=== PATIENT | female | born 1975 | race Caucasian/White ===

== ENCOUNTER 2016-12-20 19:39 | Emergency (ER) | payer SELFPAY ==
[~2016-12-20] VITALS: Ht 157.5 cm; Wt 45.0 kg
[2016-12-20 19:40] VITALS: BP 146/96; PULSE 102; RESP 18; TEMP 97.9; O2SAT 97
--- NOTE | 2016-12-20 21:26 | PD ---
HPI Chief Complaint: Chest Pain Time Seen by Provider: 21:26 Travel History International Travel<30 days: No Contact w/Intl Traveler<30days: No Traveled to known affect area: No History of Present Illness HPI 41-year-old female with history of anxiety, polysubstance abuse, alcoholism, presents to emergency department for evaluation. Patient states that she has been drinking alcohol today. She comes for evaluation of left-sided chest pain. When asked to clarify this chest pain, she states it is in her left breast. She states the pain has been there for 6-11 months. Denies any trauma. No fever or chills. She has had breast augmentation but has not followed up with her plastic surgeon in regards to this pain. Denies any shortness of breath. Cannot think of any exacerbating or alleviating factors. She has no other symptoms to report at this time. PFSH Past Medical History Anxiety: Yes Cancer: No Cardiovascular Problems: No Diminished Hearing: No Endocrine: No Genitourinary: No Immune Disorder: No Musculoskeletal: No Neurologic: Yes (MIGRAINES) Psychiatric: Yes (PANIC ATTACKS) Reproductive: No Respiratory: No Migraines: Yes ?: Not Dilation and Curettage (D&C): Yes Past Surgical History Other Surgery: Yes (BREAST AUGMENTATION) Social History Alcohol Use: Yes Tobacco Use: Yes (1/2PPD) Substance Use: Yes (valium, xanax, COCAINE) Allergies-Medications (Allergen,Severity, Reaction): Coded Allergies: No Known Allergies (Verified , 12/20/16) Reported Meds & Prescriptions Reported Meds & Active Scripts Active No Active Prescriptions or Reported Medications Review of Systems Except as stated in HPI: all other systems reviewed are Neg Physical Exam Narrative GENERAL: Unkempt female patient, appears to be under the influence with smell of alcohol, slurred speech, and labile behavior, in no acute distress SKIN: Warm and dry. Breasts are symmetric, appeared to be augmented, no induration or erythema. No appreciable abscess. HEAD: Atraumatic. Normocephalic. EYES: Pupils equal and round. No scleral icterus. No injection or drainage. ENT: No nasal bleeding or discharge. Mucous membranes pink and moist. NECK: Trachea midline. No JVD. CARDIOVASCULAR: Elevated rate and rhythm. No murmur appreciated. RESPIRATORY: No accessory muscle use. Clear to auscultation. Breath sounds equal bilaterally. GASTROINTESTINAL: Abdomen soft, non-tender, nondistended. Hepatic and splenic margins not palpable. MUSCULOSKELETAL: No obvious deformities. No clubbing. No cyanosis. No edema. NEUROLOGICAL: Awake and alert. No obvious cranial nerve deficits. Motor grossly within normal limits. Normal speech. Data Data Last Documented VS Vital Signs Date Time Temp Pulse Resp B/P Pulse Ox O2 Delivery O2 Flow Rate FiO2 12/20/16 19:40 97.9 102 18 146/96 97 Room Air Orders Electrocardiogram (12/20/16 20:28) MDM Medical Decision Making Medical Screen Exam Complete: Yes Emergency Medical Condition: Yes Medical Record Reviewed: Yes Differential Diagnosis Neuralgia versus musculoskeletal pain versus abscess versus cellulitis versus chest wall pain versus anxiety Narrative Course 41 year-old female presents to the emergency department for evaluation. Patient appears intoxicated. She admits to drinking alcohol today. Evaluation of the left breast is reassuring. There are no indication of infection or obvious reason for her pain that has been going on for the last 6-11 months. I offered reassurance and advised that she follow-up with her plastic surgeon. Patient becomes very angry with me at this time and tells me that she "needs to call the obgyn specialist because we do this to her all the time. She is not going to the [facility]!" I explained the patient that I had no intention to place her in the psychiatric [facility] and that contacting the obgyn specialist from the emergency department at this time is not recommended. Being that the patient is clinically intoxicated, she'll be observed until she is clinically sober at which time she will be discharged. Diagnosis Primary Impression: alcohol use w mild intoxication Additional Impression: Breast pain, left Referrals: [facility] (Out patient) Plastic Surgeon Patient Instructions: Alcohol Intoxication (ED), General Instructions Additional Instructions: Follow-up with her plastic surgeon Consume alcohol in moderation Return immediately to the emergency department with any acute worsening of symptoms Med/Other Pt SpecificInfo: No Change to Meds Scripts No Active Prescriptions or Reported Meds Disposition: 01 DISCHARGE HOME Condition: Stable Kellee Anaya KRISTIN Dec 20, 2016 21:26
== END 2016-12-21 06:48 | disposition home or self-care (01) ==
LOC: NEPB 19:39 → NEPA 12-21 06:48
DX: N64.4 Mastodynia (principal); F10.229 Alcohol dependence with intoxication, unspecified; F41.9 Anxiety disorder, unspecified; F19.10 Other psychoactive substance abuse, uncomplicated

== ENCOUNTER 2016-12-21 13:06 | Emergency (ER) | payer SELFPAY ==
[~2016-12-21] VITALS: Ht 157.5 cm; Wt 45.0 kg
[2016-12-21 13:08] VITALS: BP 142/105; PULSE 75; RESP 14; TEMP 98; O2SAT 99
--- NOTE | 2016-12-21 13:41 | PD ---
HPI Chief Complaint: Chest Pain Time Seen by Provider: 13:39 Travel History International Travel<30 days: No Contact w/Intl Traveler<30days: No Traveled to known affect area: No History of Present Illness HPI 41-year-old female presents to the emergency department for evaluation of abdominal pain and chest pain. When asked how long these symptoms have been ongoing, she states that it ongoing for 6 months. She states she was seen yesterday in the emergency department an EKG was completed. However, she states that she is still concerned about her symptoms. She states that her symptoms have been intermittent over the 6 months coming and going. Patient states she is unsure she is running any fevers. She denies any chance of . She denies any abnormal vaginal discharge. Patient does not have any chronic medical problems. Her only surgery is bilateral breast implants. PFSH Past Medical History Anxiety: Yes Cancer: No Cardiovascular Problems: No Diminished Hearing: No Endocrine: No Genitourinary: No Immune Disorder: No Musculoskeletal: No Neurologic: Yes (MIGRAINES) Psychiatric: Yes (PANIC ATTACKS) Reproductive: No Respiratory: No Migraines: Yes ?: Not Dilation and Curettage (D&C): Yes Past Surgical History Other Surgery: Yes (BREAST AUGMENTATION) Social History Alcohol Use: Yes Tobacco Use: Yes (1/2PPD) Substance Use: Yes (valium, xanax, COCAINE) Allergies-Medications (Allergen,Severity, Reaction): Coded Allergies: No Known Allergies (Verified , 12/21/16) Reported Meds & Prescriptions Reported Meds & Active Scripts Active No Active Prescriptions or Reported Medications Review of Systems Except as stated in HPI: all other systems reviewed are Neg Physical Exam Narrative GENERAL: Well-developed well-nourished female patient, ambulatory. Afebrile. SKIN: Warm and dry. HEAD: Normocephalic. Atraumatic. EYES: No scleral icterus. No injection or drainage. NECK: Supple, trachea midline. No JVD or lymphadenopathy. CARDIOVASCULAR: Regular rate and rhythm without murmurs, gallops, or rubs. RESPIRATORY: Breath sounds equal bilaterally. No accessory muscle use. Lungs sounds are clear to auscultation. GASTROINTESTINAL: Abdomen soft, non-tender, nondistended. MUSCULOSKELETAL: No cyanosis, or edema. BACK: Nontender without obvious deformity. No CVA tenderness. Data Data Last Documented VS Vital Signs Date Time Temp Pulse Resp B/P Pulse Ox O2 Delivery O2 Flow Rate FiO2 12/21/16 15:01 70 16 123/79 97 Room Air 12/21/16 13:08 98.0 Orders Electrocardiogram (12/21/16 13:38) Basic Metabolic Panel (Bmp) (12/21/16 13:38) Ckmb (Isoenzyme) Profile (12/21/16 13:38) Complete Blood Count With Diff (12/21/16 13:38) Troponin I (12/21/16 13:38) Lipase (12/21/16 13:38) Chest, Single Ap (12/21/16 13:38) Hepatic Functional Panel (12/21/16 15:28) Ct Abd/Pel W Iv Contrast(Rout) (12/21/16 ) Ed Urine Pregnancytest Poc (12/21/16 15:28) Labs Laboratory Tests Test 12/21/16 14:15 White Blood Count 12.9 TH/MM3 Red Blood Count 4.24 MIL/MM3 Hemoglobin 13.6 GM/DL Hematocrit 40.5 % Mean Corpuscular Volume 95.5 FL Mean Corpuscular Hemoglobin 32.2 PG Mean Corpuscular Hemoglobin 33.7 % Concent Red Cell Distribution Width 14.5 % Platelet Count 426 TH/MM3 Mean Platelet Volume 9.1 FL Neutrophils (%) (Auto) 59.2 % Lymphocytes (%) (Auto) 30.2 % Monocytes (%) (Auto) 7.9 % Eosinophils (%) (Auto) 1.9 % Basophils (%) (Auto) 0.8 % Neutrophils # (Auto) 7.6 TH/MM3 Lymphocytes # (Auto) 3.9 TH/MM3 Monocytes # (Auto) 1.0 TH/MM3 Eosinophils # (Auto) 0.2 TH/MM3 Basophils # (Auto) 0.1 TH/MM3 CBC Comment DIFF FINAL Differential Comment Sodium Level 136 MEQ/L Potassium Level 3.6 MEQ/L Chloride Level 101 MEQ/L Carbon Dioxide Level 26.8 MEQ/L Anion Gap 8 MEQ/L Blood Urea Nitrogen 8 MG/DL Creatinine 0.75 MG/DL Estimat Glomerular Filtration 86 ML/MIN Rate Random Glucose 77 MG/DL Calcium Level 8.7 MG/DL Total Creatine Kinase 93 U/L Troponin I LESS THAN 0.02 NG/ML Lipase 207 U/L MDM Medical Decision Making Medical Screen Exam Complete: Yes Emergency Medical Condition: Yes Medical Record Reviewed: Yes Differential Diagnosis Anxiety versus chronic pain versus unlikely ACS Narrative Course 41-year-old female presents to the emergency department for evaluation of chest pain or abdominal pain has been ongoing intermittently for 6 months. Physical exam is reassuring. CBC, CMP, CK, troponin, lipase are ordered and pending. Chest x-ray is ordered and pending. Workup is initiated in triage. Patient will be moved to medical pod for further evaluation and disposition. Scripts No Active Prescriptions or Reported Meds Iris Pastrana Dec 21, 2016 13:41
--- NOTE | 2016-12-21 14:02 | RADRPT ---
EXAM DATE/TIME: 12/21/2016 13:34 [facility] COMPARISON: No previous studies available for comparison. INDICATIONS : Chest pains. MEDICAL HISTORY : Edema around abdomen and legs. SURGICAL HISTORY : None. ENCOUNTER: Initial ACUITY: 1 week PAIN SCORE: 3/10 LOCATION: Bilateral chest FINDINGS: A single view of the chest demonstrates the lungs to be symmetrically aerated without evidence of mas s, infiltrate or effusion. The cardiomediastinal contours are unremarkable. Osseous structures are intact. CONCLUSION: No acute disease. Rojelio Mayorga MD FACR on December 21, 2016 at 14:00 Board Certified Radiologist. This report was verified electronically.
[2016-12-21 14:44] LABS: AUTOMATED NEUTROPHIL # 7.6 TH/MM3 (1.8-7.7); BASOPHIL # 0.1 TH/MM3 (0-0.2); BASOPHIL % 0.8 % (0.0-2.0); EOSINOPHIL # 0.2 TH/MM3 (0-0.4); EOSINOPHIL % 1.9 % (0.0-4.0); HEMATOCRIT 40.5 % (35.0-46.0); HEMO FLAGS DIFF FINAL; LYMPH % 30.2 % (9.0-44.0); LYMPHOCYTE # 3.9 TH/MM3 (1.0-4.8); MEAN CELL VOLUME 95.5 FL (80.0-100.0); MEAN CORPUSCULAR HEMOGLOBIN 32.2 PG (27.0-34.0); MEAN CORPUSCULAR HGB CONC 33.7 % (32.0-36.0); MONO % 7.9 % (0.0-8.0); NEUT % 59.2 % (16.0-70.0); PLATELET COUNT 426 TH/MM3 (150-450); RED BLOOD COUNT 4.24 MIL/MM3 (4.00-5.30); RED CELL DISTRIBUTION WIDTH 14.5 % (11.6-17.2); WHITE BLOOD COUNT 12.9 TH/MM3 (4.0-11.0)
[2016-12-21 14:50] LABS: ANION GAP 8 MEQ/L (5-15); BICARBONATE 26.8 MEQ/L (21.0-32.0); BLOOD UREA NITROGEN 8 MG/DL (7-18); CHLORIDE 101 MEQ/L (98-107); GLOMERULAR FILTRATION RATE 86 ML/MIN (>89); POTASSIUM 3.6 MEQ/L (3.5-5.1); SODIUM (NA) 136 MEQ/L (136-145)
[2016-12-21 14:59] LABS: CREATINE KINASE 93 U/L (26-192)
[2016-12-21 15:01] VITALS: BP 123/79; PULSE 70; RESP 16; O2SAT 97
[2016-12-21 16:33] LABS: INDIRECT BILIRUBIN 0.1 MG/DL (0.0-0.8); TOTAL BILIRUBIN ADULT 0.2 MG/DL (0.2-1.0)
--- NOTE | 2016-12-21 16:53 | EKG ---
Date Performed: 12/21/2016 Time Performed: 14:06:42 PTAGE: 41 years EKG: Sinus rhythm NORMAL ECG INTERPRETATION BASED ON A DEFAULT AGE OF 41 YEARS NO PREVIOUS TRACING DOCTOR: Abdi Boone Interpretating Date/Time 12/21/2016 16:51:57
[2016-12-21] MEDS ORDERED: IOHEXOL 350 MG/ML 10 ML VIAL (for RAD DIAG) IV ONE (17:56)
--- NOTE | 2016-12-21 18:18 | RADRPT ---
EXAM DATE/TIME: 12/21/2016 17:53 [facility] COMPARISON: No previous studies available for comparison. INDICATIONS : Epigastric and abdominal pain. IV CONTRAST: 70 cc Omnipaque 350 (iohexol) IV ORAL CONTRAST: No oral contrast ingested. RADIATION DOSE: 4.52 CTDIvol (mGy) MEDICAL HISTORY : None SURGICAL HISTORY : D&C. ENCOUNTER: Initial ACUITY: 1 month PAIN SCALE: 4/10 LOCATION: Bilateral upper quadrant TECHNIQUE: Volumetric scanning of the abdomen and pelvis was performed. Using automated exposure control and ad justment of the mA and/or kV according to patient size, radiation dose was kept as low as reasonably achievable to obtain optimal diagnostic quality images. FINDINGS: LOWER LUNGS: The visualized lower lungs are clear. Patient has bilateral breast augmentation. LIVER: Homogeneous density without lesion. There is no dilation of the biliary tree. No calcified gallston es. SPLEEN: Normal size without lesion. PANCREAS: There is some fullness in what I believe is the pancreatic head with a focal, 1.1 cm hypodensity whic h is nonspecific. KIDNEYS: Normal in size and shape. There is no mass, stone or hydronephrosis. ADRENAL GLANDS: Within normal limits. VASCULAR: There is no aortic aneurysm. BOWEL/MESENTERY: The stomach, small bowel, and colon demonstrate no acute abnormality. There is no free intraperitone al air or fluid. ABDOMINAL WALL: Within normal limits. RETROPERITONEUM: There is no lymphadenopathy. BLADDER: No wall thickening or mass. REPRODUCTIVE: Uterus is retroverted. Isn't prominent on 2.1 cm cyst in the left ovary. Multiple pelvic varicosities are identified, particularly on the left.. INGUINAL: There is no lymphadenopathy or hernia. MUSCULOSKELETAL: Within normal limits for patient age. CONCLUSION: 1. Patient has a retroverted uterus with multiple sherwin-uterine varicosities. In the appropriate clini mata setting, findings could represent pelvic congestion syndrome. 2. In addition, 2.1 cm dominant cyst in left ovary. 3. Nonspecific fullness of the pancreatic head with an isolated 1.1 cm hypodensity in the same genera l vicinity. I do not believe that this is the cause of the patient's acute clinical symptoms. At some point, MRI of the pancreas with and without gadolinium could be performed for further characterizati on of this region. Alessandro Sherman MD on December 21, 2016 at 18:10 Board Certified Radiologist. This report was verified electronically.
--- NOTE | 2016-12-21 18:37 | PD ---
Physical Exam Narrative Patient is 41-year-old female who originally seen by [facility] in triage where workup was initiated. She is complaining of chest pain and abdominal pain, both of which she has had 4 she says 11 months. She was seen here yesterday complaining of chest pain and was intoxicated at the time. She was discharged home to follow-up with her doctor. She says the pain in her lower abdomen has gotten worse. She denies any nausea or vomiting. She says she is "swollen" in her ankles, her hands and her abdomen. She denies any vaginal discharge. Data Data Last Documented VS Vital Signs Date Time Temp Pulse Resp B/P Pulse Ox O2 Delivery O2 Flow Rate FiO2 12/21/16 15:01 70 16 123/79 97 Room Air 12/21/16 13:08 98.0 Orders Electrocardiogram (12/21/16 13:38) Basic Metabolic Panel (Bmp) (12/21/16 13:38) Ckmb (Isoenzyme) Profile (12/21/16 13:38) Complete Blood Count With Diff (12/21/16 13:38) Troponin I (12/21/16 13:38) Lipase (12/21/16 13:38) Chest, Single Ap (12/21/16 13:38) Hepatic Functional Panel (12/21/16 15:28) Ct Abd/Pel W Iv Contrast(Rout) (12/21/16 ) Ed Urine Pregnancytest Poc (12/21/16 15:28) Iohexol 350 Inj (Omnipaque 350 Inj) (12/21/16 17:56) Urinalysis - C+S If Indicated (12/21/16 18:27) Labs Laboratory Tests Test 12/21/16 14:15 White Blood Count 12.9 TH/MM3 Red Blood Count 4.24 MIL/MM3 Hemoglobin 13.6 GM/DL Hematocrit 40.5 % Mean Corpuscular Volume 95.5 FL Mean Corpuscular Hemoglobin 32.2 PG Mean Corpuscular Hemoglobin 33.7 % Concent Red Cell Distribution Width 14.5 % Platelet Count 426 TH/MM3 Mean Platelet Volume 9.1 FL Neutrophils (%) (Auto) 59.2 % Lymphocytes (%) (Auto) 30.2 % Monocytes (%) (Auto) 7.9 % Eosinophils (%) (Auto) 1.9 % Basophils (%) (Auto) 0.8 % Neutrophils # (Auto) 7.6 TH/MM3 Lymphocytes # (Auto) 3.9 TH/MM3 Monocytes # (Auto) 1.0 TH/MM3 Eosinophils # (Auto) 0.2 TH/MM3 Basophils # (Auto) 0.1 TH/MM3 CBC Comment DIFF FINAL Differential Comment Sodium Level 136 MEQ/L Potassium Level 3.6 MEQ/L Chloride Level 101 MEQ/L Carbon Dioxide Level 26.8 MEQ/L Anion Gap 8 MEQ/L Blood Urea Nitrogen 8 MG/DL Creatinine 0.75 MG/DL Estimat Glomerular Filtration 86 ML/MIN Rate Random Glucose 77 MG/DL Calcium Level 8.7 MG/DL Total Bilirubin 0.2 MG/DL Direct Bilirubin 0.1 MG/DL Indirect Bilirubin 0.1 MG/DL Aspartate Amino Transf 18 U/L (AST/SGOT) Alanine Aminotransferase 22 U/L (ALT/SGPT) Alkaline Phosphatase 80 U/L Total Creatine Kinase 93 U/L Troponin I LESS THAN 0.02 NG/ML Total Protein 7.8 GM/DL Albumin 4.0 GM/DL Lipase 207 U/L [facility] Supervised Visit with [facility]: Yes Narrative Course Patient is a 41-year-old female comes in complaining of chest pain and abdominal pain which she has had for several months. Exam shows some diffuse abdominal tenderness, there is no ascites seen. Heart is regular rate and rhythm, lungs are clear to auscultation. There is no edema of any of her extremities. IV established and labs sent. Creatinine is within normal limits. Liver function testing is within normal limits. White blood cell count is 12.9. CT of the abdomen and pelvis shows varicosities within the pelvis, possible pelvic congestion syndrome. There is also a lesion in her pancreas which cannot be defined at this time. Patient informed of these results. Advised she needs to follow-up with gynecology regarding the pelvic findings. Advised she needs to follow-up with her primary care doctor and have an MRI of her pancreas done to further classified the lesion. Patient is resting comfortably at this time. Will be discharged home to follow- up with the appropriate doctors. Advised to return to the emergency department as needed for any worsening symptoms. Diagnosis Primary Impression: Abdominal pain Qualified Code: R10.30 - Lower abdominal pain Referrals: [facility] call for appointment Patient Instructions: Abdominal Pain (ED), General Instructions Additional Instruction: Your CT of your abdomen shows a large amount of veins in your pelvis, which may be causing you pain. You need to follow up with gynecology for further management. In addition, there was a lesion seen on your pancreas. Follow up with a primary care physician or the community clinic to have an outpatient MRI performed. You can take Tylenol or Ibuprofen for pain. Return to the ED as needed for any worsening symptoms. Scripts No Active Prescriptions or Reported Meds Disposition: 01 DISCHARGE HOME Condition: Stable Maite Hobbs MD Dec 21, 2016 18:37
[2016-12-21 18:55] LABS: BLOOD, URINE NEG (NEG); COMMENT (UR) CULT NOT INDICATED; CULTURE IF INDICATED CULT NOT INDICATED; GLUCOSE,URINE NEG (NEG); KETONE, URINE NEG (NEG); NITRITE,URINE NEG (NEG); PH, URINE 7.5 (5.0-8.5); SQUAMOUS EPITHELIAL CELL URINE 4 /hpf (0-5); URINE COLOR LIGHT-YELLOW (YELLW/STRAW)
[2016-12-21 19:27] VITALS: BP 125/76; PULSE 76; RESP 16; O2SAT 98
== END 2016-12-21 19:27 | disposition home or self-care (01) ==
LOC: NEPC 13:06
DX: R10.30 Lower abdominal pain, unspecified (principal); R07.9 Chest pain, unspecified; F17.210 Nicotine dependence, cigarettes, uncomplicated; F14.90 Cocaine use, unspecified, uncomplicated; F13.90 Sedative, hypnotic, or anxiolytic use, unspecified, uncomplicated
CPT/HCPCS: 71010; 74177; 80048; 80076; 81001; 82550; 83690; 84484; 84703; 85025; 93005; 99285; Q9967

== ENCOUNTER 2017-05-08 15:59 | Emergency (ER) | payer SELFPAY ==
[~2017-05-08] VITALS: Ht 157.5 cm; Wt 53.6 kg
[2017-05-08 16:01] VITALS: BP 135/92; PULSE 90; RESP 20; TEMP 97.9; O2SAT 97
--- NOTE | 2017-05-08 16:39 | PD ---
Physical Exam Time Seen by Provider: 16:37 Narrative 42yo F c/o abd distention and pain x 1 month. +V, diarrhea. Subjective fever. Currently on menses. Patient seen in triage. VS reviewed. Awaiting bed placement. Data Data Last Documented VS Vital Signs Date Time Temp Pulse Resp B/P Pulse Ox O2 Delivery O2 Flow Rate FiO2 05/08/17 16:01 97.9 90 20 135/92 97 Room Air MDM Supervised Visit with [facility]: No Scripts No Active Prescriptions or Reported Meds Sherie Ordonez May 08, 2017 16:39
== END 2017-05-08 17:46 | disposition left against medical advice (07) ==
LOC: NED 15:59
DX: R14.0 Abdominal distension (gaseous) (principal); R11.10 Vomiting, unspecified; R19.7 Diarrhea, unspecified; R50.9 Fever, unspecified; Z53.21 Procedure and treatment not carried out due to patient leaving prior to being seen by health care provider
CPT/HCPCS: 99281

== ENCOUNTER 2017-06-13 10:30 | Emergency (ER) | payer SELFPAY ==
[~2017-06-13] VITALS: Ht 157.5 cm; Wt 55.0 kg
[2017-06-13 10:32] VITALS: BP 183/105; PULSE 166; RESP 20; TEMP 98.8; O2SAT 100
[2017-06-13 10:37] VITALS: PULSE 134
[2017-06-13 10:48] VITALS: BP 180/128; PULSE 146; RESP 22; O2SAT 97
[2017-06-13] MEDS ORDERED: SODIUM CHLOR 0.9% 1000 ML INJ 1,000 ML IV SCH (10:57)
[2017-06-13] MEDS ORDERED: SODIUM CHLORIDE 0.9% FLUSH 5 ML FLUSH IV FLUSH PRN (11:00)
[2017-06-13] MEDS ORDERED: LORazepam 2 MG/ML VIAL IV PUSH ONE ×3 (11:00→13:00)
[2017-06-13] MEDS ORDERED: diphenhydrAMINE HCL 50 MG/ML VIAL IV PUSH ONE (11:00)
--- NOTE | 2017-06-13 11:01 | PD ---
HPI Chief Complaint: Anxiety Time Seen by Provider: 10:42 Travel History International Travel<30 days: No Contact w/Intl Traveler<30days: No Traveled to known affect area: No History of Present Illness HPI Patient is a 42-year-old female presents emergency department for a chief complaint of my left breast implant ruptured. Patient states that a gentleman whom she is related to his coming was a merchant police who can tell us more. She is reluctant to give us any other additional information this time. Patient arrives tachycardic with dilated pupils and appears to be under the influence of some unknown substance. She will not provide any additional history and appears to be paranoid. At the patient's consent she is provided her mother Lakesha's phone number, [phone], and Lakesha states that she dropped her off today because she is concerned that her daughter has some mental health issues. She agrees with decision to [place]. She is unsure who the person whom her daughter is referring. PFSH Past Medical History Anxiety: Yes Cancer: No Cardiovascular Problems: No Diminished Hearing: No Endocrine: No Genitourinary: No Immune Disorder: No Implanted Vascular Access Dvce: No Musculoskeletal: No Neurologic: Yes (MIGRAINES) Psychiatric: Yes (PANIC ATTACKS) Reproductive: No Respiratory: No Migraines: Yes Influenza Vaccination: No ?: Not Dilation and Curettage (D&C): Yes Past Surgical History Other Surgery: Yes (BREAST AUGMENTATION) Social History Alcohol Use: Yes (daily) Tobacco Use: Yes (1 ppd) Substance Use: Yes (valium, xanax, COCAINE, marijuana) Allergies-Medications (Allergen,Severity, Reaction): Coded Allergies: No Known Allergies (Verified , 06/13/17) Reported Meds & Prescriptions Reported Meds & Active Scripts Active No Active Prescriptions or Reported Medications Review of Systems ROS Limitations: Clinical Condition Physical Exam Narrative GENERAL: WD/WN dilated pupils. SKIN: Warm and diaphoretic. HEAD: Atraumatic. Normocephalic. EYES: Pupils equal and round reactive to light. Dilated. No scleral icterus. No injection or drainage. ENT: No nasal bleeding or discharge. Mucous membranes pink and moist. NECK: Trachea midline. No JVD. CARDIOVASCULAR: Regular rhythm. Tachycardic, no MGR. RESPIRATORY: No accessory muscle use. Clear to auscultation. Breath sounds equal bilaterally. GASTROINTESTINAL: Abdomen soft, non-tender, nondistended. Hepatic and splenic margins not palpable. MUSCULOSKELETAL: Extremities without clubbing, cyanosis, or edema. No obvious deformities. NEUROLOGICAL: Awake and alert. No obvious cranial nerve deficits. Motor grossly within normal limits. Five out of 5 muscle strength in the arms and legs. Normal speech. PSYCHIATRIC: Aggrevated, difficult to fully assess for lack of cooperation Data Data Last Documented VS Vital Signs Date Time Temp Pulse Resp B/P Pulse Ox O2 Delivery O2 Flow Rate FiO2 06/13/17 19:29 100 18 126/77 Room Air 06/13/17 16:35 98.2 97 Orders Electrocardiogram (06/13/17 10:57) Complete Blood Count With Diff (06/13/17 10:57) Comprehensive Metabolic Panel (06/13/17 10:57) Creatine Kinase (Cpk) (06/13/17 10:57) Prothrombin Time / Inr (Pt) (06/13/17 10:57) Act Partial Throm Time (Ptt) (06/13/17 10:57) Troponin I (06/13/17 10:57) Thyroid Stimulating Hormone (06/13/17 10:57) Urinalysis - C+S If Indicated (06/13/17 10:57) Blood Glucose (06/13/17 10:57) Ecg Monitoring (06/13/17 10:57) Iv Access Insert/Monitor (06/13/17 10:57) Oximetry (06/13/17 10:57) Sodium Chloride 0.9% Flush (Ns Flush) (06/13/17 11:00) Sodium Chlor 0.9% 1000 Ml Inj (Ns 1000 M (06/13/17 10:57) Drug Screen, Random Urine (06/13/17 10:57) Alcohol (Ethanol) (06/13/17 10:57) Tylenol (Acetaminophen) (06/13/17 10:57) Salicylates (Aspirin) (06/13/17 10:57) Lorazepam Inj (Ativan Inj) (06/13/17 11:00) Diphenhydramine Inj (Benadryl Inj) (06/13/17 11:00) Lorazepam Inj (Ativan Inj) (06/13/17 12:30) Ct Pulmonary Angiogram (06/13/17 ) Ct Brain W/O Iv Contrast(Rout) (06/13/17 ) Restraints Violent (06/13/17 12:17) Lorazepam Inj (Ativan Inj) (06/13/17 13:00) Haloperidol Inj (Haldol Inj) (06/13/17 13:00) Cath For Specimen (06/13/17 12:52) Vascular Access Team Consult/P PRN (06/13/17 13:05) Psych Screen (06/13/17 13:05) Vascular Poc Ultrasound (06/13/17 ) Iohexol 350 Inj (Omnipaque 350 Inj) (06/13/17 15:24) Urine Culture (06/13/17 16:32) Labs Laboratory Tests Test 06/13/17 06/13/17 06/13/17 11:00 16:32 18:12 White Blood Count 19.7 TH/MM3 Red Blood Count 4.51 MIL/MM3 Hemoglobin 15.0 GM/DL Hematocrit 44.9 % Mean Corpuscular Volume 99.6 FL Mean Corpuscular Hemoglobin 33.1 PG Mean Corpuscular Hemoglobin 33.3 % Concent Red Cell Distribution Width 14.1 % Platelet Count 365 TH/MM3 Mean Platelet Volume 8.8 FL Neutrophils (%) (Auto) 78.5 % Lymphocytes (%) (Auto) 13.7 % Monocytes (%) (Auto) 7.3 % Eosinophils (%) (Auto) 0.1 % Basophils (%) (Auto) 0.4 % Neutrophils # (Auto) 15.5 TH/MM3 Lymphocytes # (Auto) 2.7 TH/MM3 Monocytes # (Auto) 1.4 TH/MM3 Eosinophils # (Auto) 0.0 TH/MM3 Basophils # (Auto) 0.1 TH/MM3 CBC Comment DIFF FINAL Differential Comment Prothrombin Time 11.7 SEC Prothromb Time International 1.1 RATIO Ratio Activated Partial 24.7 SEC Thromboplast Time Sodium Level 138 MEQ/L Potassium Level 3.5 MEQ/L Chloride Level 104 MEQ/L Carbon Dioxide Level 16.2 MEQ/L Anion Gap 18 MEQ/L Blood Urea Nitrogen 15 MG/DL Creatinine 1.07 MG/DL Estimat Glomerular Filtration 57 ML/MIN Rate Random Glucose 135 MG/DL Calcium Level 9.3 MG/DL Total Bilirubin 0.3 MG/DL Aspartate Amino Transf 18 U/L (AST/SGOT) Alanine Aminotransferase 23 U/L (ALT/SGPT) Alkaline Phosphatase 64 U/L Total Creatine Kinase 82 U/L Troponin I LESS THAN 0.02 NG/ML Total Protein 8.9 GM/DL Albumin 4.6 GM/DL Thyroid Stimulating Hormone 1.420 uIU/ML 3rd Gen Urine Color YELLOW Urine Turbidity HAZY Urine pH 7.0 Urine Specific [place] GREATER THAN 1.050 Urine Protein 30 mg/dL Urine Glucose (UA) NEG mg/dL Urine Ketones 10 mg/dL Urine Occult Blood NEG Urine Nitrite NEG Urine Bilirubin NEG Urine Urobilinogen LESS THAN 2.0 MG/DL Urine Leukocyte Esterase TRACE Urine RBC LESS THAN 1 /hpf Urine WBC 2 /hpf Urine Squamous Epithelial 7 /hpf Cells Urine Bacteria RARE /hpf Urine Mucus FEW /lpf Microscopic Urinalysis Comment CATH-CULTURE IND Urine Opiates Screen NEG Urine Barbiturates Screen NEG Urine Amphetamines Screen POS Urine Benzodiazepines Screen POS Urine Cocaine Screen NEG Urine Cannabinoids Screen NEG Salicylates Level 2.0 MG/DL Acetaminophen Level LESS THAN 2.0 MCG/ML Ethyl Alcohol Level LESS THAN 3 MG/DL MDM Medical Decision Making Medical Screen Exam Complete: Yes Emergency Medical Condition: Yes Differential Diagnosis Psychosis, Drug induced psychosis, depression, drug muling seems unlikely, PE. Narrative Course Patient roomed in ED. Callum acted by me for bizarre behavior, gravely disabled and (likely substance induced) psychosis. Tachycardic on arrival, likely amphetamine or cocaine intoxication. Responsive to haldol. Restrained for some time in ED because would not stay in bed and is flight risk. Was asked to stay in bed and unable to cooperate. CT head and chest negative. Contacted mother, she is concerned for her [facility] mental health. Stable for psychiatric evaluation and disposition. Diagnosis Primary Impression: Psychosis Scripts No Active Prescriptions or Reported Meds Condition: Stable Milton Connolly MD Jun 13, 2017 11:01
[2017-06-13 11:19] LABS: AUTOMATED NEUTROPHIL # 15.5 TH/MM3 (1.8-7.7); BASOPHIL # 0.1 TH/MM3 (0-0.2); BASOPHIL % 0.4 % (0.0-2.0); EOSINOPHIL % 0.1 % (0.0-4.0); HEMATOCRIT 44.9 % (35.0-46.0); HEMO FLAGS DIFF FINAL; LYMPH % 13.7 % (9.0-44.0); LYMPHOCYTE # 2.7 TH/MM3 (1.0-4.8); MEAN CELL VOLUME 99.6 FL (80.0-100.0); MEAN CORPUSCULAR HEMOGLOBIN 33.1 PG (27.0-34.0); MEAN CORPUSCULAR HGB CONC 33.3 % (32.0-36.0); MONO % 7.3 % (0.0-8.0); NEUT % 78.5 % (16.0-70.0); PLATELET COUNT 365 TH/MM3 (150-450); RED BLOOD COUNT 4.51 MIL/MM3 (4.00-5.30); RED CELL DISTRIBUTION WIDTH 14.1 % (11.6-17.2); WHITE BLOOD COUNT 19.7 TH/MM3 (4.0-11.0)
[2017-06-13 11:34] LABS: APTT (PATIENT) 24.7 SEC (24.3-30.1); INTERNATIONAL NORMALIZED RATIO 1.1 RATIO; PROTHROMBIN TIME - PATIENT 11.7 SEC (9.8-11.6)
[2017-06-13 11:40] LABS: ANION GAP 18 MEQ/L (5-15); AST (GOT) 18 U/L (15-37); BICARBONATE 16.2 MEQ/L (21.0-32.0); BLOOD UREA NITROGEN 15 MG/DL (7-18); CHLORIDE 104 MEQ/L (98-107); GLOMERULAR FILTRATION RATE 57 ML/MIN (>89); POTASSIUM 3.5 MEQ/L (3.5-5.1); SODIUM (NA) 138 MEQ/L (136-145)
[2017-06-13 11:50] LABS: ALKALINE PHOSPHATASE 64 U/L (45-117); ALT (GPT) 23 U/L (10-53); TOTAL BILIRUBIN ADULT 0.3 MG/DL (0.2-1.0)
[2017-06-13 11:55] LABS: CREATINE KINASE 82 U/L (26-192)
[2017-06-13 12:28] VITALS: O2SAT 95
[2017-06-13] MEDS ORDERED: HALOPERIDOL LACTATE 5 MG/ML AMP IM ONE (13:00)
[2017-06-13] MEDS ORDERED: IOHEXOL 350 MG/ML 10 ML VIAL (for RAD DIAG) IV ONE (15:24)
--- NOTE | 2017-06-13 15:32 | RADRPT ---
EXAM DATE/TIME: 06/13/2017 15:14 [facility] COMPARISON: No previous studies available for comparison. INDICATIONS : Short of breath, embolism. IV CONTRAST: 70 cc Omnipaque 350 (iohexol) IV RADIATION DOSE: 6.34 CTDIvol (mGy) MEDICAL HISTORY : None SURGICAL HISTORY : Breast sx. ENCOUNTER: Initial ACUITY: 1 day PAIN SCALE: 6/10 LOCATION: Bilateral chest TECHNIQUE: Volumetric scanning of the chest was performed using a pulmonary embolism protocol MIP images were re constructed. Using automated exposure control and adjustment of the mA and/or kV according to patien t size, radiation dose was kept as low as reasonably achievable to obtain optimal diagnostic quality images. DICOM format image data is available electronically for review and comparison. Follow-up recommendations for incidentally detected pulmonary nodules are based at a minimum on nodul e size and patient risk factors according to Fleischner Society Guidelines. FINDINGS: PULMONARY ARTERIES: No filling defects are seen in the pulmonary arteries through the segmental level. LUNGS: There is no consolidation or pneumothorax . No concerning pulmonary nodule is visualized. PLEURAE: There is no pleural thickening or pleural effusion. MEDIASTINUM: There is good visualization of the great vessels of the middle mediastinum. No evidence of mediastin al or hilar adenopathy/mass. MUSCULOSKELETAL: Within normal limits. MISCELLANEOUS: The visualized upper abdominal organs demonstrate no acute abnormality. Bilateral breast implants are present. CONCLUSION: No PE is identified. Also, no acute finding is identified to explain the clinical symptoms. Avery Alicea MD on June 13, 2017 at 15:27 Board Certified Radiologist. This report was verified electronically.
--- NOTE | 2017-06-13 15:37 | RADRPT ---
EXAM DATE/TIME: 06/13/2017 15:04 [facility] COMPARISON: No previous studies available for comparison. INDICATIONS : Altered mental status, patient confused with migraines. RADIATION DOSE: 56.77 CTDIvol (mGy) MEDICAL HISTORY : None SURGICAL HISTORY : None. ENCOUNTER: Initial ACUITY: 1 day PAIN SCALE: 7/10 LOCATION: Bilateral cranial TECHNIQUE: Multiple contiguous axial images were obtained of the head. Using automated exposure control and adj ustment of the mA and/or kV according to patient size, radiation dose was kept as low as reasonably a chievable to obtain optimal diagnostic quality images. DICOM format image data is available electro nically for review and comparison. FINDINGS: CEREBRUM: The ventricles are normal for age. No evidence of midline shift, mass lesion, hemorrhage or acute in farction. No extra-axial fluid collections are seen. POSTERIOR FOSSA: The cerebellum and brainstem are intact. The 4th ventricle is midline. The cerebellopontine angle i s unremarkable. EXTRACRANIAL: The visualized portion of the orbits is intact. SKULL: The calvaria is intact. No evidence of skull fracture. CONCLUSION: 1. No acute findings. Exam slightly degraded by motion artifact. Henry Brooks MD on June 13, 2017 at 15:34 Board Certified Radiologist. This report was verified electronically.
[2017-06-13 16:35] VITALS: BP 118/69; PULSE 99; RESP 25; TEMP 98.2; O2SAT 97
[2017-06-13 17:32] LABS: BACTERIA, URINE RARE /hpf; BLOOD, URINE NEG (NEG); COMMENT (UR) CATH-CULTURE IND; CULTURE IF INDICATED CATH CULTURE IND; GLUCOSE,URINE NEG (NEG); KETONE, URINE 10 mg/dL (NEG); MUCUS URINE FEW /lpf (OCC); NITRITE,URINE NEG (NEG); SQUAMOUS EPITHELIAL CELL URINE 7 /hpf (0-5); URINE COLOR YELLOW (YELLW/STRAW)
[2017-06-13 18:38] LABS: AMPHETAMINE, URINE POS (NEG); BARBITURATES, URINE NEG (NEG); COCAINE, URINE NEG (NEG)
[2017-06-13 19:06] LABS: ACETAMINOPHEN LESS THAN 2.0 MCG/ML (10.0-30.0)
[2017-06-13 19:29] VITALS: BP 126/77; PULSE 100; RESP 18
[2017-06-14 02:28] VITALS: BP 120/64; PULSE 90; RESP 18
[2017-06-14 06:10] VITALS: BP 105/69; PULSE 87; RESP 16
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
--- NOTE | 2017-06-14 11:17 | EKG ---
Date Performed: 06/13/2017 Time Performed: 13:32:02 PTAGE: 42 years EKG: SINUS TACHYCARDIA ABNORMAL RHYTHM ECG PREVIOUS TRACING : 12/21/2016 14.06 DOCTOR: Mark Bronson Interpretating Date/Time 06/14/2017 11:16:23
== END 2017-06-14 10:53 | disposition home or self-care (01) ==
LOC: NEPC 10:30 → NEPJ 06-14 10:53
DX: F29 Unspecified psychosis not due to a substance or known physiological condition (principal); F19.959 Other psychoactive substance use, unspecified with psychoactive substance-induced psychotic disorder, unspecified; R00.0 Tachycardia, unspecified; H57.04 Mydriasis; R94.31 Abnormal electrocardiogram [ECG] [EKG]; F17.200 Nicotine dependence, unspecified, uncomplicated; Z86.59 Personal history of other mental and behavioral disorders; Z86.69 Personal history of other diseases of the nervous system and sense organs
CPT/HCPCS: 70450; 71275; 76937; 80053; 80307; 81001; 82550; 84443; 84484; 85025; 85610; 85730; 87086; 93005; 96361; 96372; 96374; 96375; 96376; 99285; J1200; J1630; J2060; J7030; Q9967